=== PATIENT | female | born 1990 | race American Indian/Alaskan Native ===

== ENCOUNTER 2020-09-18 11:25 | Emergency (ER) | payer MEDICAID ==
[2020-09-18 12:14] VITALS: BP 146/99
[2020-09-18] MEDS ORDERED: ONDANSETRON 4 MG ODT TAB PO ONE (12:29)
--- NOTE | 2020-09-18 12:35 | Event Note ---
ED Screening Note Date of service: 09/18/20 Time: 12:25 ED Screening Note: 29-year-old morbid obese -[place] female presents to the emergency room stating that she has nausea and vomiting since this morning. She reports she is currently on her menstrual cycle. This initial assessment/diagnostic orders/clinical plan/treatment(s) is/are subject to change based on patients health status, clinical progression and re- assessment by fellow clinical providers in the ED. Further treatment and workup at subsequent clinical providers discretion. Patient/guardian urged not to elope from the ED as their condition may be serious if not clinically assessed and managed. Initial orders include:
[2020-09-18 14:21] LABS: HCG Qualitative,Urine Negative (Negative)
[2020-09-18 14:29] LABS: Bilirubin,Urine NEG (Negative); Blood,Urine MOD (Negative); Color,Urine Yellow (Yellow); Mucus,Urine FEW /HPF; Urobilinogen,Urine < 2.0 mg/dL (<2.0)
== END 2020-09-18 17:59 | disposition left against medical advice (07) ==
LOC: ED 11:25
DX: R07.89 Other chest pain (principal); R11.2 Nausea with vomiting, unspecified; R51.9 Headache, unspecified; Z53.21 Procedure and treatment not carried out due to patient leaving prior to being seen by health care provider
CPT/HCPCS: 81001; 81025; Q0162

== ENCOUNTER 2020-09-20 16:59 | Emergency (ER) | payer MEDICAID ==
[2020-09-20] MEDS ORDERED: SODIUM CHLORIDE 0.9% 1000 ML 1,000 ML IV ONE (17:54)
[2020-09-20] MEDS ORDERED: DICYCLOMINE 20 MG/2 ML INJ IM ONE (17:54)
[2020-09-20 18:12] LABS: Basophils # (Auto) 0.1 K/mm3 (0.0-0.1); Basophils % (Auto) 1.1 % (0.0-1.8); Eosinophils # (Auto) 0.1 K/mm3 (0.0-0.4); Eosinophils % (Auto) 0.8 % (0.0-4.3); Hematocrit 33.9 % (30.3-42.9); Hemoglobin 11.3 gm/dl (10.1-14.3); Lymphocytes # (Auto) 2.5 K/mm3 (1.2-5.4); Lymphocytes % (Auto) 32.3 % (13.4-35.0); Mean Corpuscular HGB Conc 33 % (30-34); Mean Corpuscular Volume 86 fl (79-97); Monocytes # (Auto) 0.5 K/mm3 (0.0-0.8); Monocytes % (Auto) 6.9 % (0.0-7.3); Platelet Count 408 K/mm3 (140-440); Red Blood Count 3.96 M/mm3 (3.65-5.03); Red Cell Distribution Width 15.9 % (13.2-15.2)
[2020-09-20 18:35] LABS: Alanine Aminotransferase 10 units/L (7-56); Albumin 3.7 g/dL (3.9-5); Blood Urea Nitrogen 9 mg/dL (7-17); Calcium 8.8 mg/dL (8.4-10.2); Hemolysis Index 0
[2020-09-20] MEDS ORDERED: ALUM-MAG HYDROXIDE-SIMETHICONE 200-200-20MG/5ML ORAL LIQD 30 ML PO ONE (18:35)
[2020-09-20] MEDS ORDERED: ONDANSETRON 4 MG/2 ML INJ IV ONE (18:35)
[2020-09-20] MEDS ORDERED: HYOSCYAMINE SUBL 0.125 MG TAB SL ONE (18:35)
--- NOTE | 2020-09-20 18:35 | Emergency Department Report ---
ED Abdominal Pain HPI - General Chief Complaint: Abdominal Pain Stated Complaint: ABD PAIN Time Seen by Provider: 09/20/20 17:53 Source: patient Mode of arrival: Ambulatory Limitations: No Limitations - History of Present Illness Initial Comments: Patient is a 29-year-old female presents emergency room complaints of right- sided abdominal pain that began 2 days ago. She states initially she was having nausea and vomiting but the vomiting has since resolved. She states that she has been having diarrhea over the last 2 days. She denies any fever, he matochezia, melena, pus in the stool, urinary symptoms, abnormal vaginal discharge. She denies any sick contacts, recent travel, recent camping, water from a different source, recent antibiotics. She denies eating anything that may have been bad or spoiled. Past medical history of hypertension GERD. No allergies to medications. Last menstrual cycle last week. Past surgical history of umbilical hernia repair approximately 7 years ago. Patient states that she presented to the emergency department 2 days ago but had to leave and she had a UA at that time which was within normal limits and urine was negative. She states that the vomiting improved but she still continues to have pain. - Related Data Previous Rx's Medication Instructions Recorded Last Taken Type Hyoscyamine Subl [Levsin Sl 0.125 0.125 mg SL Q6HR PRN #7 tab 09/20/20 Unknown Rx TAB] Ondansetron [Zofran Odt] 4 mg PO Q8HR PRN #10 tab.rapdis 09/20/20 Unknown Rx Allergies Allergy/AdvReac Type Severity Reaction Status Date / Time No Known Allergies Allergy Unverified 09/18/20 12:08 ED Review of Systems ROS: Stated complaint: ABD PAIN Other details as noted in HPI Comment: All other systems reviewed and negative ED Past Medical Hx - Past Medical History Previous Medical History?: Yes Hx Hypertension: Yes - Surgical History Past Surgical History?: Yes Additional Surgical History: HERNIA. left knee - Social History Smoking Status: Never Smoker Substance Use Type: None - Medications Home Medications: Home Medications Medication Instructions Recorded Confirmed Last Taken Type Hyoscyamine Subl [Levsin Sl 0.125 0.125 mg SL Q6HR PRN #7 tab 09/20/20 Unknown Rx TAB] Ondansetron [Zofran Odt] 4 mg PO Q8HR PRN #10 tab.rapdis 09/20/20 Unknown Rx ED Physical Exam - General Limitations: No Limitations General appearance: alert, in no apparent distress - Head Head exam: Present: atraumatic, normocephalic - Eye Eye exam: Present: normal appearance - ENT ENT exam: Present: mucous membranes moist - Respiratory Respiratory exam: Present: normal lung sounds bilaterally. Absent: respiratory distress, wheezes, rales, rhonchi, stridor, chest wall tenderness, accessory muscle use, decreased breath sounds, prolonged expiratory - Cardiovascular Cardiovascular Exam: Present: regular rate, normal rhythm, normal heart sounds. Absent: systolic murmur, diastolic murmur, rubs, gallop - GI/Abdominal GI/Abdominal exam: Present: soft, tenderness (RUQ, RLQ), normal bowel sounds. Absent: distended, guarding, rebound, rigid - Neurological Exam Neurological exam: Present: alert, oriented X3 - Psychiatric Psychiatric exam: Present: normal affect, normal mood - Skin Skin exam: Present: warm, dry, intact ED Course Vital Signs 09/20/20 09/20/20 17:20 21:00 Temperature 98.4 F 98.7 F Pulse Rate 92 H 70 Respiratory 18 18 Rate Blood Pressure 137/85 Blood Pressure 134/77 [Right] O2 Sat by Pulse 100 98 Oximetry ED Medical Decision Making - Lab Data Result diagrams: 09/20/20 18:02 09/20/20 18:02 Lab Results 09/20/20 09/20/20 09/20/20 Range/Units 18:02 18:02 18:02 WBC 7.6 (4.5-11.0) K/mm3 RBC 3.96 (3.65-5.03) M/mm3 Hgb 11.3 (10.1-14.3) gm/dl Hct 33.9 (30.3-42.9) % MCV 86 (79-97) fl MCH 29 (28-32) pg MCHC 33 (30-34) % RDW 15.9 H (13.2-15.2) % Plt Count 408 (140-440) K/mm3 Lymph % (Auto) 32.3 (13.4-35.0) % Calhoun % (Auto) 6.9 (0.0-7.3) % Eos % (Auto) 0.8 (0.0-4.3) % Baso % (Auto) 1.1 (0.0-1.8) % Lymph # (Auto) 2.5 (1.2-5.4) K/mm3 Calhoun # (Auto) 0.5 (0.0-0.8) K/mm3 Eos # (Auto) 0.1 (0.0-0.4) K/mm3 Baso # (Auto) 0.1 (0.0-0.1) K/mm3 Seg Neutrophils % 58.9 (40.0-70.0) % Seg Neutrophils # 4.5 (1.8-7.7) K/mm3 Sodium 140 (137-145) mmol/L Potassium 3.8 (3.6-5.0) mmol/L Chloride 105.9 (98-107) mmol/L Carbon Dioxide 27 (22-30) mmol/L Anion Gap 11 mmol/L BUN 9 (7-17) mg/dL Creatinine 0.7 (0.6-1.2) mg/dL Estimated GFR > 60 ml/min BUN/Creatinine Ratio 13 % Glucose 101 H (65-100) mg/dL Calcium 8.8 (8.4-10.2) mg/dL Total Bilirubin 0.20 (0.1-1.2) mg/dL AST 16 (5-40) units/L ALT 10 (7-56) units/L Alkaline Phosphatase 62 (35-129) units/L Total Protein 7.1 (6.3-8.2) g/dL Albumin 3.7 L (3.9-5) g/dL Albumin/Globulin Ratio 1.1 % Lipase 30 (13-60) units/L HCG, Qual Negative (Negative) - Radiology Data Radiology results: report reviewed CT OF THE ABDOMEN AND PELVIS WITH INTRAVENOUS CONTRAST INDICATION / CLINICAL INFORMATION: Right-sided abdominal pain with nausea, vomiting and diarrhea. TECHNIQUE: The patient received 100 cc Omnipaque [address] scans at this location are performed using CT dose reduction for ALARA by means of automated exposure control. COMPARISON: None available. FINDINGS: ABDOMEN: The liver, spleen, bile ducts, pancreas, adrenal glands, kidneys and bowel demonstrate no significant abnormality. The gallbladder is contracted without visible gallstones. No adenopathy is seen. The lung bases are clear. PELVIS: The distal ureters and urinary bladder are normal. The uterus and ovaries are normal. No abnormal mass or fluid collection is seen. A normal appendix is present and there is no evidence of diverticulitis. I do not identify a hernia. No acute osseous abnormality is seen. IMPRESSION: No acute abnormality is identified. Signer Name: Victor Hugo Freitas MD Signed: 09/20/2020 8:31 PM Workstation Name: [id number] Transcribed By: RT Dictated By: Victor Hugo Freitas MD Electronically Authenticated By: Victor Hugo Freitas MD Signed Date/Time: 09/20/202030 DD/ 28 TD/TT: Print Cancel - Medical Decision Making Patient is a 29-year-old female presents emergency room complaints of right- sided abdominal pain that began 2 days ago. She states initially she was having nausea and vomiting but the vomiting has since resolved. She states that she has been having diarrhea over the last 2 days. She denies any fever, hematochezia, melena, pus in the stool, urinary symptoms, abnormal vaginal di scharge. She denies any sick contacts, recent travel, recent camping, water from a different source, recent antibiotics. She denies eating anything that may have been bad or spoiled. Past medical history of hypertension GERD. No allergies to medications. Last menstrual cycle last week. Past surgical history of umbilical hernia repair approximately 7 years ago. Patient states that she presented to the emergency department 2 days ago but had to leave and she had a UA at that time which was within normal limits and urine was negative. She states that the vomiting improved but she still continues to have pain. Vitals are stable. On exam: Right upper quadrant and right lower q uadrant tenderness palpation, no guarding, no rebound, no rigidity, normal bowel sounds, no peritoneal signs. Labs are normal, hCG is negative. Patient had recent UA which within normal limits. CT abdomen pelvis with IV contrast IMPRESSION: No acute abnormality is identified. Patient given medications while in the emergency department and symptoms improved, she was able to tolerate p.o. intake without difficulty. She had no further episodes of vomiting or diarrhea while in the emergency department. Patient given prescription for Levsin and Zofran. Advised patient Please take medication as prescribed. Increase your water intake. Eat a bland liquid diet and slowly advance your diet as tolerated. Follow-up with a primary care doctor. Return to emergency room for any new or worsening symptoms. - Differential Diagnosis Gastroenteritis, colitis, appendicitis, cholecystitis, cholelithiasis,viral Critical care attestation.: If time is entered above; I have spent that time in minutes in the direct care of this critically ill patient, excluding procedure time. ED Disposition Clinical Impression: Nausea vomiting and diarrhea Abdominal pain Qualifiers: Abdominal location: unspecified location Qualified Code(s): R10.9 - Unspecified abdominal pain Disposition: TO HOME OR SELFCARE Is pt being admited?: No Does the pt Need Aspirin: No Condition: Stable Instructions: Viral Gastroenteritis, Adult, Abdominal Pain (ED) Additional Instructions: Please take medication as prescribed. Increase your water intake. Eat a bland liquid diet and slowly advance your diet as tolerated. Follow-up with a primary care doctor. Return to emergency room for any new or worsening symptoms. Prescriptions: Hyoscyamine Subl [Levsin Sl 0.125 TAB] 0.125 mg SL Q6HR PRN #7 tab PRN Reason: abdominal cramping/diarrhea Ondansetron [Zofran Odt] 4 mg PO Q8HR PRN #10 tab.rapdis PRN Reason: nausea/vomiting Referrals: PRIMARY CAREMD [Primary Care Provider] - 2-3 Days CARLOS ROCHA MD [Staff Physician] - 2-3 Days [facility] [Provider Group] - 2-3 Days Time of Disposition: 20:38 Print Language: ALGERIAN
[2020-09-20 18:38] LABS: BUN/Creatinine Ratio 13
--- NOTE | 2020-09-20 20:36 | Cat Scan Report ---
CT OF THE ABDOMEN AND PELVIS WITH INTRAVENOUS CONTRAST INDICATION / CLINICAL INFORMATION: Right-sided abdominal pain with nausea, vomiting and diarrhea. TECHNIQUE: The patient received 100 cc Omnipaque [address] scans at this location are performed using CT dose reduction for ALARA by means of automated exposure control. COMPARISON: None available. FINDINGS: ABDOMEN: The liver, spleen, bile ducts, pancreas, adrenal glands, kidneys and bowel demonstrate no si gnificant abnormality. The gallbladder is contracted without visible gallstones. No adenopathy is see n. The lung bases are clear. PELVIS: The distal ureters and urinary bladder are normal. The uterus and ovaries are normal. No abno rmal mass or fluid collection is seen. A normal appendix is present and there is no evidence of diver ticulitis. I do not identify a hernia. No acute osseous abnormality is seen. IMPRESSION: No acute abnormality is identified. Signer Name: Victor Hugo Freitas MD Signed: 09/20/2020 8:31 PM Workstation Name: [id number]
[2020-09-20 21:12] VITALS: BP 134/77
== END 2020-09-20 21:00 | disposition home or self-care (01) ==
LOC: ED 16:59
DX: R11.2 Nausea with vomiting, unspecified (principal); R19.7 Diarrhea, unspecified; R10.9 Unspecified abdominal pain; I10 Essential (primary) hypertension; Z79.899 Other long term (current) drug therapy; Z98.890 Other specified postprocedural states
CPT/HCPCS: 36415; 74177; 80053; 83690; 84703; 85025; 96361; 96374; 99284; J2405; J7030; Q9967

== ENCOUNTER → 2020-11-15 | Outpatient (CLI) | payer MEDICAID | END | disposition home or self-care (01) | LOC: SLR 11:00 | PROVIDERS: ATTEND Otolaryngology | DX: G47.30 Sleep apnea, unspecified (principal) | CPT/HCPCS: G0399 ==

== ENCOUNTER 2020-12-01 11:00 | Outpatient (CLI) | payer MEDICAID | END 2020-12-01 11:01 | disposition home or self-care (01) | LOC: SLR 11:00 | PROVIDERS: ATTEND Otolaryngology | DX: G47.33 Obstructive sleep apnea (adult) (pediatric) (principal) | CPT/HCPCS: 95811 ==

== ENCOUNTER 2020-12-08 20:15 | Emergency (ER) | payer MEDICAID ==
--- NOTE | 2020-12-08 22:59 | Event Note ---
ED Screening Note Date of service: 12/08/20 Time: 22:56 ED Screening Note: Patient is a 30 yo AA female with a h/o HTN, Anemia and morbid obesity who presents to the ED with c/o acute onset persistent lightheadedness, near syncope, headache and left-sided chest pain that radiates to the left arm with tingling sensations for the last 2 hours. Patient states that she took 2 tablets of Asprin 81 mg prior to arrival. Patient denies vision changes, diaphoresis, syncope, seizures, fever, chills, or cough, abdominal pain, nausea and vomiting. This initial assessment/diagnostic orders/clinical plan/treatment(s) is/are subject to change based on patients health status, clinical progression and re- assessment by fellow clinical providers in the ED. Further treatment and workup at subsequent clinical providers discretion. Patient/guardian urged not to elope from the ED as their condition may be serious if not clinically assessed and managed. Initial orders include: cbc, cmp, troponin, chest x-ray, d-dimer, ekg
[2020-12-08 23:17] LABS: Basophils # (Auto) 0.1 K/mm3 (0.0-0.1); Basophils % (Auto) 1.2 % (0.0-1.8); Eosinophils # (Auto) 0.1 K/mm3 (0.0-0.4); Eosinophils % (Auto) 1.5 % (0.0-4.3); Hematocrit 33.6 % (30.3-42.9); Hemoglobin 11.4 gm/dl (10.1-14.3); Lymphocytes # (Auto) 3.2 K/mm3 (1.2-5.4); Lymphocytes % (Auto) 41.3 % (13.4-35.0); Mean Corpuscular HGB Conc 34 % (30-34); Mean Corpuscular Volume 85 fl (79-97); Monocytes # (Auto) 0.4 K/mm3 (0.0-0.8); Monocytes % (Auto) 5.7 % (0.0-7.3); Platelet Count 400 K/mm3 (140-440); Red Blood Count 3.95 M/mm3 (3.65-5.03); Red Cell Distribution Width 15.5 % (13.2-15.2)
[2020-12-08 23:46] LABS: Alanine Aminotransferase 11 units/L (7-56); Albumin 4.2 g/dL (3.9-5); Blood Urea Nitrogen 10 mg/dL (7-17); Calcium 9.3 mg/dL (8.4-10.2); Hemolysis Index 6
[2020-12-08 23:47] LABS: BUN/Creatinine Ratio 14
--- NOTE | 2020-12-08 23:58 | XRay Report ---
CHEST 1 VIEW 2331 INDICATION / CLINICAL INFORMATION: CHEST PAIN, DYSPNEA COMPARISON: None available. FINDINGS: SUPPORT DEVICES: None HEART / MEDIASTINUM: No significant abnormality. LUNGS / PLEURA: Poor degree of inspiration is seen. No obvious acute abnormalities are noted. No pneu mothorax. ADDITIONAL FINDINGS: No significant additional findings. IMPRESSION: No significant acute abnormality Signer Name: Jhonathan Will MD Signed: 12/08/2020 11:54 PM Workstation Name: [id number]
[2020-12-09 05:34] VITALS: BP 122/70
[2020-12-09] MEDS ORDERED: BUTALB/ACETAMINOPHEN/CAFFEINE TAB PO ONE (06:16)
--- NOTE | 2020-12-09 06:20 | Emergency Department Report ---
HPI - General Chief Complaint: Dizziness Time Seen by Provider: 12/09/20 06:05 - HPI HPI: Room 1 The patient is a 30-year-old female present with a chief complaint of headache dizziness and chest pain. The patient states last night she developed this s ubsternal chest pain dizziness and headache. Patient admits to increased work of breathing. The patient states she took some aspirin when she arrived to the ED the symptoms slowly began to subside. Patient now only complains of a headache and gives her pain a score of 3/10. Patient denies any preceding trauma, fever or nausea/vomiting. The patient was dropped off by the emergency department by her significant other ED Past Medical Hx - Past Medical History Hx Hypertension: Yes Hx GERD: Yes Additional medical history: Thrombocytosis, obstructive sleep apnea, vitamin D deficiency, GERD - Surgical History Additional Surgical History: HERNIA. left knee - Family History Family history: no significant, other (No family history of premature heart disease) - Social History Smoking Status: Never Smoker Substance Use Type: None (Denies illicit drug use), Alcohol (Occasional) - Medications Home Medications: Home Medications Medication Instructions Recorded Confirmed Last Taken Type Hyoscyamine Subl [Levsin Sl 0.125 0.125 mg SL Q6HR PRN #7 tab 09/20/20 Unknown Rx TAB] Ondansetron [Zofran Odt] 4 mg PO Q8HR PRN #10 tab.rapdis 09/20/20 Unknown Rx Butalb/Acetamin/Caff 50-325-40 2 tab PO Q8HR PRN #14 tablet 12/09/20 Unknown Rx [Fioricet 50-325-40] Famotidine [Pepcid] 20 mg PO BID #20 tablet 12/09/20 Unknown Rx ED Review of Systems ROS: Stated complaint: FEELING FAINT/LIGHT HEADED Other details as noted in HPI Constitutional: denies: fever Eyes: denies: eye pain ENT: denies: throat pain Respiratory: other (Increased work of breathing) Cardiovascular: chest pain Endocrine: no symptoms reported Gastrointestinal: denies: abdominal pain, nausea, vomiting Genitourinary: denies: dysuria Musculoskeletal: denies: back pain Neurological: headache Physical Exam - Physical Exam Vital Signs: Vital Signs 12/08/20 12/09/20 20:30 05:34 Temperature 98.6 F 98.2 F Pulse Rate 86 68 Respiratory 18 16 Rate Blood Pressure 128/75 Blood Pressure 122/70 [Left] O2 Sat by Pulse 97 96 Oximetry Physical Exam: GENERAL: The patient is well-developed well-nourished female lying on stretcher not appearing to be in acute distress. [] HEENT: Normocephalic. Atraumatic. Extraocular motions are intact. No nystagmus patient has moist mucous membranes. NECK: Supple. No meningitic signs are noted. Trachea midline CHEST/LUNGS: Clear to auscultation. There is no respiratory distress noted. HEART/CARDIOVASCULAR: Regular. There is no tachycardia. There is no gallop rub or murmur. ABDOMEN: Abdomen is soft, nontender. Patient has normal bowel sounds. There is no abdominal distention. SKIN: There is no rash. There is no edema. There is no diaphoresis. NEURO: The patient is awake, alert, and oriented. The patient is cooperative. The patient has no focal neurologic deficits. The patient has normal speech. Cranial nerves II through XII grossly intact, no drift. No dysmetria noted with [id number] bilaterally. No nystagmus. GCS 15 MUSCULOSKELETAL: There is no evidence of acute injury. ED Course Vital Signs 12/08/20 12/09/20 20:30 05:34 Temperature 98.6 F 98.2 F Pulse Rate 86 68 Respiratory 18 16 Rate Blood Pressure 128/75 Blood Pressure 122/70 [Left] O2 Sat by Pulse 97 96 Oximetry ED Medical Decision Making - Lab Data Result diagrams: 12/08/20 22:59 12/08/20 22:59 Laboratory Tests 12/08/20 12/08/20 12/08/20 22:59 22:59 22:59 WBC 7.8 RBC 3.95 Hgb 11.4 Hct 33.6 MCV 85 MCH 29 MCHC 34 RDW 15.5 H Plt Count 400 Lymph % (Auto) 41.3 H Morrison % (Auto) 5.7 Eos % (Auto) 1.5 Baso % (Auto) 1.2 Lymph # (Auto) 3.2 Morrison # (Auto) 0.4 Eos # (Auto) 0.1 Baso # (Auto) 0.1 Seg Neutrophils % 50.3 Seg Neutrophils # 3.9 D-Dimer 138.79 Sodium 136 L Potassium 4.1 Chloride 100.9 Carbon Dioxide 24 Anion Gap 15 BUN 10 Creatinine 0.7 Estimated GFR > 60 BUN/Creatinine Ratio 14 Glucose 95 Calcium 9.3 Total Bilirubin 0.20 AST 19 ALT 11 Alkaline Phosphatase 65 Troponin T < 0.010 Total Protein 7.3 Albumin 4.2 Albumin/Globulin Ratio 1.4 HCG, Qual 12/09/20 12/09/20 12/09/20 01:35 06:57 06:57 WBC RBC Hgb Hct MCV MCH MCHC RDW Plt Count Lymph % (Auto) Morrison % (Auto) Eos % (Auto) Baso % (Auto) Lymph # (Auto) Morrison # (Auto) Eos # (Auto) Baso # (Auto) Seg Neutrophils % Seg Neutrophils # D-Dimer Sodium Potassium Chloride Carbon Dioxide Anion Gap BUN Creatinine Estimated GFR BUN/Creatinine Ratio Glucose Calcium Total Bilirubin AST ALT Alkaline Phosphatase Troponin T < 0.010 < 0.010 Total Protein Albumin Albumin/Globulin Ratio HCG, Qual Negative - EKG Data -: EKG Interpreted by Me EKG shows normal: sinus rhythm Rate: normal - EKG Data When compared to previous EKG there are: previous EKG unavailable Interpretation: nonspecific ST-T wave saulo (Flattened T waves infero-laterally) - Radiology Data Radiology results: report reviewed (Chest x-ray, CT head), image reviewed (Chest x-ray, CT head) interpreted by me: Chest x-ray-no focal infiltrates, no pneumothorax. No foreign body seen [address] [address] XRay Report Signed Patient: INÉS SUAREZ MR#: [id number] : 1990 Acct:[id number] Age/Sex: 30 / F ADM Date: 12/08/20 Loc: ED Attending Dr: Order ing Physician: MARÍA MCKEON Date of Service: 12/08/20 Procedure(s): XR chest 1V ap Accession Number(s): [id number] cc: MARÍA MCKEON Fluoro Time In Minutes: CHEST 1 VIEW 2331 INDICATION / CLINICAL INFORMATION: CHEST PAIN, DYSPNEA COMPARISON: None available. FINDINGS: SUPPORT DEVICES: None HEART / MEDIASTINUM: No significant abnormality. LUNGS / PLEURA: Poor degree of inspiration is seen. No obvious acute abnormalities are noted. No pneumothorax. ADDITIONAL FINDINGS: No significant additional findings. IMPRESSION: No significant acute abnormality Signer Name: Jhonathan Will MD Signed: 12/08/2020 11:54 PM Workstation Name: [id number] Transcribed By: MARIAMA Dictated By: Jhonathan Will MD Electronically Authenticated By: Jhonathan Will MD Signed Date/Time: 12/08/202353 DD/ 53 TD/TT: Print [facility] [address] [place] [address] Cat Scan Report Signed Patient: INÉS SUAREZ MR#: [id number] : 1990 Acct:[id number] Age/Sex: 30 / F ADM Date: 12/08/20 Loc: ED Attending Dr: Ordering Physician: MARY JO OCONNOR MD Date of Service: 12/09/20 Procedure(s): CT head/brain wo con Accession Number(s): [id number] cc: MARY JO OCONNOR MD CT HEAD WITHOUT CONTRAST INDICATION: Frontal headache TECHNIQUE: All CT scans at this location are performed using CT dose reduction for ALARA by means of automated exposure control. COMPARISON: None available. FINDINGS: BRAIN: No hemorrhage or mass effect are seen. No evidence of acute infarction is noted. ORBITS: Normal as visualized. SOFT TISSUES OF HEAD: Normal. CALVARIUM: Normal. VISUALIZED PARANASAL SINUSES AND MASTOID AIR CELLS: Clear. ADDITIONAL FINDINGS: None. IMPRESSION: No acute intracranial abnormality. Signer Name: Jhonathan Will MD Signed: 12/09/2020 6:59 AM Workstation Name: [id number] Transcribed By: MARIAMA Dictated By: Jhonathan Will MD Electronically Authenticated By: Jhonathan Will MD Signed Date/Time: 12/09/2059 DD/ TD/TT: Print Cancel - Medical Decision Making Chest pain referral form faxed to [facility] ([phone]) - Differential Diagnosis Headache, intracranial mass, ACS, PE, pericarditis, GERD, anxiety Critical care attestation.: If time is entered above; I have spent that time in minutes in the direct care of this critically ill patient, excluding procedure time. ED Disposition Clinical Impression: Headache, Atypical chest pain Disposition: DC-01 TO HOME OR SELFCARE Is pt being admited?: No Does the pt Need Aspirin: No Condition: Stable Instructions: General Headache Without Cause, Nonspecific Chest Pain, Adult Additional Instructions: Return to the emergency department should you develop worsening symptoms, inability to tolerate food or liquids, high fever or any other concerns Prescriptions: Butalb/Acetamin/Caff 50-325-40 [Fioricet 50-325-40] 2 tab PO Q8HR PRN #14 tablet PRN Reason: Headache Famotidine [Pepcid] 20 mg PO BID #20 tablet Referrals: [facility] MD ANTONIO [Primary Care Provider] - 3-5 Days FAISAL HERNANDEZ MD [Staff Physician] - 3-5 Days Time of Disposition: 07:38 Heart Score - HEART Score History: Slightly suspicious EKG: Non-specific Age: < 45 Risk factors: 1-2 risk factors Troponin: < normal limit HEART Score: 2 - EKG Read Time Time EKG Completed: 23:19 EKG Read Time: 00:28
--- NOTE | 2020-12-09 07:03 | Cat Scan Report ---
CT HEAD WITHOUT CONTRAST INDICATION: Frontal headache TECHNIQUE: All CT scans at this location are performed using CT dose reduction for ALARA by means of automated exposure control. COMPARISON: None available. FINDINGS: BRAIN: No hemorrhage or mass effect are seen. No evidence of acute infarction is noted. ORBITS: Normal as visualized. SOFT TISSUES OF HEAD: Normal. CALVARIUM: Normal. VISUALIZED PARANASAL SINUSES AND MASTOID AIR CELLS: Clear. ADDITIONAL FINDINGS: None. IMPRESSION: No acute intracranial abnormality. Signer Name: Jhonathan Will MD Signed: 12/09/2020 6:59 AM Workstation Name: [id number]
--- NOTE | 2020-12-12 10:06 | Electrocardiograph Report ---
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
== END 2020-12-09 08:01 | disposition home or self-care (01) ==
LOC: ED 20:15
DX: R07.89 Other chest pain (principal); R51.9 Headache, unspecified; R42 Dizziness and giddiness; I10 Essential (primary) hypertension; K21.9 Gastro-esophageal reflux disease without esophagitis; Z98.890 Other specified postprocedural states; Z79.899 Other long term (current) drug therapy
CPT/HCPCS: 36415; 70450; 71045; 80053; 84484; 84703; 85025; 85379; 93005

== ENCOUNTER 2021-04-25 12:46 | Emergency (ER) | payer MEDICAID ==
[2021-04-25 12:53] VITALS: BP 156/84
--- NOTE | 2021-04-25 13:46 | Emergency Department Report ---
ED Chest Pain HPI - General Chief Complaint: Chest Pain Stated Complaint: chest pain PUI?: No Time Seen by Provider: 04/25/21 12:56 Source: patient Mode of arrival: Ambulatory Limitations: No Limitations - History of Present Illness Initial Comments: 30-year-old female with a past medical history of hypertension , GERD , iron def iciency and thrombocytopenia presents to the ER today with complaints of chest pain. Patient states that she has been having left-sided chest pain, mainly underneath her left breast and into her left back intermittently for about 1 month. She describes as a sharp achy pain. She states that she feels like the pain is becoming more intense. She also reports that she feels like her heart is beating "hard" at times. She is unable to describe any modifying factors. She denies any associated nausea, vomiting, shortness of breath, URI symptoms or cough, lower extremity swelling or calf pain. She denies any history of PE or DVT and currently denies any risk factors for PE or DVT. She denies any history of heart disease nor any family history of heart disease. She denies any illicit drug use or alcohol abuse. MD Complaint: chest pain -: month(s) (1) - Related Data Previous Rx's Medication Instructions Recorded Last Taken Type Hyoscyamine Subl [Levsin Sl 0.125 0.125 mg SL Q6HR PRN #7 tab 09/20/20 Unknown Rx TAB] Ondansetron [Zofran Odt] 4 mg PO Q8HR PRN #10 tab.rapdis 09/20/20 Unknown Rx Butalb/Acetamin/Caff 50-325-40 2 tab PO Q8HR PRN #14 tablet 12/09/20 Unknown Rx [Fioricet 50-325-40] Famotidine [Pepcid] 20 mg PO BID #20 tablet 12/09/20 Unknown Rx Allergies Allergy/AdvReac Type Severity Reaction Status Date / Time No Known Allergies Allergy Unverified 09/18/20 12:08 Heart Score - HEART Score History: Slightly suspicious EKG: Normal Age: < 45 Risk factors: 1-2 risk factors Troponin: < normal limit HEART Score: 1 - EKG Read Time Time EKG Completed: 15:42 EKG Read Time: 15:45 - Critical Actions Critical Actions: 0-3 pts:0.9-1.7%risk of adverse cardiac event.Candidate for discharge ED Review of Systems ROS: Stated complaint: chest pain Other details as noted in HPI Comment: All other systems reviewed and negative Constitutional: denies: chills, fever Eyes: denies: eye pain, eye discharge, vision change ENT: denies: ear pain, throat pain, dental pain, hearing loss, epistaxis, fan estion Respiratory: denies: cough, shortness of breath, SOB with exertion, SOB at rest, wheezing Cardiovascular: chest pain. denies: palpitations, dyspnea on exertion, orthopnea, edema, syncope, paroxysmal nocturnal dyspnea Gastrointestinal: denies: abdominal pain, nausea, vomiting, diarrhea, constipation, hematemesis, melena, hematochezia Genitourinary: denies: urgency, dysuria, frequency, hematuria, discharge, abnormal menses, dyspareunia Musculoskeletal: denies: back pain Skin: denies: rash, lesions, change in color, change in hair/nails, pruritus Neurological: denies: headache, weakness, paresthesias, abnormal gait, vertigo Psychiatric: denies: anxiety, depression, auditory hallucinations, visual hallucinations, homicidal thoughts, suicidal thoughts Hematological/Lymphatic: denies: easy bleeding, easy bruising, swollen glands ED Past Medical Hx - Past Medical History Previous Medical History?: Yes Hx Hypertension: Yes Hx GERD: Yes Additional medical history: Thrombocytosis, obstructive sleep apnea, vitamin D deficiency, GERD - Surgical History Past Surgical History?: Yes Additional Surgical History: HERNIA. left knee - Social History Smoking Status: Never Smoker Substance Use Type: None (Denies illicit drug use), Alcohol (Occasional) - Medications Home Medications: Home Medications Medication Instructions Recorded Confirmed Last Taken Type Hyoscyamine Subl [Levsin Sl 0.125 0.125 mg SL Q6HR PRN #7 tab 09/20/20 Unknown Rx TAB] Ondansetron [Zofran Odt] 4 mg PO Q8HR PRN #10 tab.rapdis 09/20/20 Unknown Rx Butalb/Acetamin/Caff 50-325-40 2 tab PO Q8HR PRN #14 tablet 12/09/20 Unknown Rx [Fioricet 50-325-40] Famotidine [Pepcid] 20 mg PO BID #20 tablet 12/09/20 Unknown Rx ED Physical Exam - General Limitations: No Limitations General appearance: alert, in no apparent distress - Head Head exam: Present: atraumatic, normocephalic, normal inspection - Eye Eye exam: Present: normal appearance, PERRL, EOMI Pupils: Present: normal accommodation - Neck Neck exam: Present: normal inspection, full ROM - Respiratory Respiratory exam: Present: normal lung sounds bilaterally. Absent: respiratory distress, wheezes, rales, rhonchi, chest wall tenderness - Cardiovascular Cardiovascular Exam: Present: regular rate, normal rhythm, normal heart sounds - GI/Abdominal GI/Abdominal exam: Present: soft. Absent: distended, tenderness, guarding, rebound - Extremities Exam Extremities exam: Present: normal inspection, full ROM. Absent: tenderness, pedal edema, calf tenderness - Neurological Exam Neurological exam: Present: alert, oriented X3, CN II-XII intact, normal gait - Psychiatric Psychiatric exam: Present: normal affect, normal mood - Skin Skin exam: Present: intact ED Course Vital Signs 04/25/21 12:51 Temperature 98 F Pulse Rate 85 Respiratory 16 Rate Blood Pressure 156/84 [Left] O2 Sat by Pulse 96 Oximetry ED Medical Decision Making - Lab Data Result diagrams: 04/25/21 14:03 04/25/21 14:03 - EKG Data -: EKG Interpreted by Or EKG shows normal: sinus rhythm Rate: normal (71) - EKG Data Interpretation: normal EKG - Radiology Data Radiology results: report reviewed Patient: INÉS SUAREZ MR#: [id number] : 1990 Acct:[id number] Age/Sex: 30 / F ADM Date: 04/25/21 Loc: ED Attending Dr: Ordering Physician: JOSIAH BALL Date of Service: 04/25/21 Procedure(s): XR chest routine 2V Accession Number(s): [id number] cc: JOSIAH BALL Fluoro Time In Minutes: CHEST 2 VIEWS INDICATION / CLINICAL INFORMATION: Chest Pain. COMPARISON: 12/08/2020 FINDINGS: SUPPORT DEVICES: None. HEART / MEDIASTINUM: No significant abnormality. LUNGS / PLEURA: No significant pulmonary or pleural abnormality. No pneumothorax. ADDITIONAL FINDINGS: No significant additional findings. IMPRESSION: 1. No acute findings. Signer Name: Gonzalo Hinson MD Signed: 04/25/2021 2:23 PM Workstation Name: [email or web address] Transcribed By: SB Dictated By: GONZALO HINSON MD Electronically Authenticated By: GONZALO HINSON MD Signed Date/Time: 04/25/211422 DD/ 21 TD/TT: - Medical Decision Making 30-year-old female with a past medical history of hypertension , GERD , iron deficiency and thrombocytopenia presents to the ER today with complaints of chest pain. Patient states that she has been having left-sided chest pain, mainly underneath her left breast and into her left back intermittently for about 1 month. She describes as a sharp achy pain. She states that she feels like the pain is becoming more intense. She also reports that she feels like her heart is beating "hard" at times. She is unable to describe any modifying factors. She denies any associated nausea, vomiting, shortness of breath, URI symptoms or cough, lower extremity swelling or calf pain. She denies any history of PE or DVT and currently denies any risk factors for PE or DVT. She denies any history of heart disease nor any family history of heart disease. She denies any illicit drug use or alcohol abuse. EKG shows normal sinus rhythm with a heart rate of 71, no acute ischemic changes or STEMI or significant dysrhythmias. Troponin is negative. CBC and CMP unremarkable. Chest x-ray shows nothing acute. Patient has a heart score of 1. PERC score is 0. There is no concern for unstable angina, PE, aortic dissection, or any other acute cardiopulmonary issues requiring any additional testing, admission or specialist consult at this time. Discussed lab results, EKG results and x-ray results with patient. Her information will be faxed over to the [facility] so they can contact her for cardiology follow-up. Patient expressed understanding for instructions and agree with plan. Patient stable at time of discharge. Critical care attestation.: If time is entered above; I have spent that time in minutes in the direct care of this critically ill patient, excluding procedure time. ED Disposition Clinical Impression: Nonspecific chest pain Disposition: HOME / SELF CARE / HOMELESS Is pt being admited?: No Does the pt Need Aspirin: No Condition: Stable Instructions: Nonspecific Chest Pain, Adult, [id number] Additional Instructions: Your information was faxed over to the [facility], and you should be contacted by them for follow-up with a director of retail and further cardiac work-up. You can take a baby aspirin every day. You can also take Tylenol as needed for pain and continue taking your regular blood pressure medication as prescribed. Return to the ER if your symptoms changes or worsens in any way. Referrals: [facility] [Provider Group] - 3-5 Days Forms: Work/School Release Form(ED) Time of Disposition: 15:57 Print Language: E[employer]ATOR[employer] GUINEAN
--- NOTE | 2021-04-25 14:27 | XRay Report ---
CHEST 2 VIEWS INDICATION / CLINICAL INFORMATION: Chest Pain. COMPARISON: 12/08/2020 FINDINGS: SUPPORT DEVICES: None. HEART / MEDIASTINUM: No significant abnormality. LUNGS / PLEURA: No significant pulmonary or pleural abnormality. No pneumothorax. ADDITIONAL FINDINGS: No significant additional findings. IMPRESSION: 1. No acute findings. Signer Name: Gonzalo Silva MD Signed: 04/25/2021 2:23 PM Workstation Name: [employer]
[2021-04-25 14:32] LABS: Basophils % (Auto) 0.7 % (0.0-1.8); Eosinophils # (Auto) 0.1 K/mm3 (0.0-0.4); Eosinophils % (Auto) 1.1 % (0.0-4.3); Hematocrit 38.9 % (30.3-42.9); Hemoglobin 12.7 gm/dl (10.1-14.3); Mean Corpuscular HGB Conc 33 % (30-34); Mean Corpuscular Volume 89 fl (79-97); Monocytes # (Auto) 0.4 K/mm3 (0.0-0.8); Monocytes % (Auto) 6.3 % (0.0-7.3); Platelet Count 400 K/mm3 (140-440); Red Blood Count 4.38 M/mm3 (3.65-5.03); Red Cell Distribution Width 15.6 % (13.2-15.2)
[2021-04-25 14:47] LABS: Alanine Aminotransferase 11 units/L (7-56); Albumin 3.8 g/dL (3.9-5); BUN/Creatinine Ratio 16; Blood Urea Nitrogen 13 mg/dL (7-17); Calcium 9.6 mg/dL (8.4-10.2); Hemolysis Index 3
--- NOTE | 2021-04-26 10:36 | Electrocardiograph Report ---
[facility] Test Date: 2021-04-25 Test Time: 15:42:12 Pat Name: INÉS SUAREZ Department: Room: Gender: F Platform Loader: DARIUS : 1990 Requested By: JOSIAH BALL Order Number: [id number] Reading MD: Nando Treviño Measurements Intervals [place] Rate: 71 P: 30 MN: 162 QRS: 27 QRSD: 81 T: 19 QT: 368 QTc: 402 Interpretive Statements Sinus rhythm Compared to ECG 12/08/2020 23:19:42 No significant changes Electronically Signed On 04-26-2021 10:35:36 EDT by Nando Treviño
== END 2021-04-25 16:10 | disposition home or self-care (01) ==
LOC: ED 12:46
DX: R07.9 Chest pain, unspecified (principal); I10 Essential (primary) hypertension; F10.20 Alcohol dependence, uncomplicated
CPT/HCPCS: 36415; 71046; 80053; 84484; 85025; 93005; 99283

== ENCOUNTER 2021-05-22 22:02 | Emergency (ER) | payer MEDICAID ==
[2021-05-22] MEDS ORDERED: FAMOTIDINE 20 MG TAB PO ONE (22:55)
[2021-05-22] MEDS ORDERED: ONDANSETRON 4 MG ODT TAB PO ONE (22:55)
[2021-05-22] MEDS ORDERED: ASPIRIN 81 MG TAB CHEW PO ONE (22:55)
--- NOTE | 2021-05-22 22:56 | XRay Report ---
CHEST PA AND LATERAL VIEWS INDICATION: Chest Pain. COMPARISON: 04/25/2021 FINDINGS: Support devices: None. Heart: Within normal limits. Lungs/Pleura: No acute pulmonary or pleural findings. IMPRESSION: 1. No acute findings. Signer Name: Johnny Guzman MD Signed: 05/22/2021 10:52 PM Workstation Name: [id number]
[2021-05-22 23:02] LABS: Basophils % (Auto) 0.7 % (0.0-1.8); Eosinophils # (Auto) 0.1 K/mm3 (0.0-0.4); Eosinophils % (Auto) 1.3 % (0.0-4.3); Hematocrit 36.5 % (30.3-42.9); Hemoglobin 11.9 gm/dl (10.1-14.3); Mean Corpuscular HGB Conc 33 % (30-34); Mean Corpuscular Volume 89 fl (79-97); Monocytes # (Auto) 0.4 K/mm3 (0.0-0.8); Monocytes % (Auto) 5.9 % (0.0-7.3); Platelet Count 390 K/mm3 (140-440); Red Blood Count 4.11 M/mm3 (3.65-5.03); Red Cell Distribution Width 13.6 % (13.2-15.2)
[2021-05-22 23:30] LABS: Alanine Aminotransferase 15 units/L (7-56); Albumin 3.8 g/dL (3.9-5); Blood Urea Nitrogen 14 mg/dL (7-17); Calcium 9.5 mg/dL (8.4-10.2); Hemolysis Index 30
[2021-05-22 23:35] LABS: BUN/Creatinine Ratio 20
[2021-05-23] MEDS ORDERED: ONDANSETRON 4 MG/2 ML INJ IV ONE (01:18)
[2021-05-23] MEDS ORDERED: MORPHINE 4 MG/1 ML INJ IV ONE (01:18)
--- NOTE | 2021-05-23 01:59 | Emergency Department Report ---
ED Chest Pain HPI - General Chief Complaint: Chest Pain Stated Complaint: CHEST PAINS Source: patient Mode of arrival: Ambulatory Limitations: No Limitations - History of Present Illness Initial Comments: Patient is a 30-year-old -Mongolian female with a history of morbid o besity, hypertension, GERD, vitamin D deficiency, and obstructive sleep apnea who presents to the ED with complaint of acute onset persistent epigastric pain, intermittent fever and chills and nausea and vomiting for the last 2 days. Patient also states that she has been having persistent dry cough with shortness of breath and developed acute onset left-sided chest pain at rest 3 hours prior to arrival in the ED. Patient states that no one else at home is had similar symptoms. Patient also states that she had a negative COVID-19 diagnosis test 24 hours ago. Patient denies dizziness, syncope, diarrhea, sore throat, nasal and sinus congestion, heavy lifting, dysuria, urinary frequency and urgency or hematemesis. MD Complaint: chest pain (left sided chest pain; dry cough), other (nausea and vomiting, epigastric pain;) -: Sudden, days(s) (2) Onset: during rest Pain Location: left chest Pain Radiation: none Severity: severe Severity scale (0 -10): 7 Quality: aching, sharp Consistency: constant Improves With: nothing Worsens With: other (Cough) re: nausea, vomting. denies: dyspnea, sense of impending doom Other Symptoms: cough, fever. denies: syncope, acid taste in mouth, leg swelling, palpitations, burping, other Treatments Prior to Arrival: none Aspirin use within the Past 7 Days: (0) No - Related Data On Oral Contraceptives: No Previous Rx's Medication Instructions Recorded Last Taken Type Hyoscyamine Subl [Levsin Sl 0.125 0.125 mg SL Q6HR PRN #7 tab 09/20/20 Unknown Rx TAB] Ondansetron [Zofran Odt] 4 mg PO Q8HR PRN #10 tab.rapdis 09/20/20 Unknown Rx Butalb/Acetamin/Caff 50-325-40 2 tab PO Q8HR PRN #14 tablet 12/09/20 Unknown Rx [Fioricet 50-325-40] Famotidine [Pepcid] 20 mg PO BID #20 tablet 12/09/20 Unknown Rx Famotidine [Pepcid] 20 mg PO Q12H #60 tablet 05/23/21 Unknown Rx Ibuprofen [Motrin] 800 mg PO Q8HR PRN #30 tablet 05/23/21 Unknown Rx Ondansetron [Zofran Odt] 4 mg PO Q6HR PRN #20 tab.rapdis 05/23/21 Unknown Rx Allergies Allergy/AdvReac Type Severity Reaction Status Date / Time No Known Allergies Allergy Unverified 09/18/20 12:08 Heart Score - HEART Score History: Slightly suspicious EKG: Normal Age: < 45 Risk factors: 1-2 risk factors Troponin: < normal limit HEART Score: 1 - EKG Read Time Time EKG Completed: 22:29 EKG Read Time: 22:30 - Critical Actions Critical Actions: 0-3 pts:0.9-1.7%risk of adverse cardiac event.Candidate for discharge ED Review of Systems ROS: Stated complaint: CHEST PAINS Other details as noted in HPI Constitutional: chills, fever, malaise Eyes: denies: eye pain, eye discharge, vision change ENT: denies: ear pain, throat pain, hearing loss, congestion Respiratory: cough, shortness of breath. denies: wheezing Cardiovascular: chest pain (Left-sided chest pain). denies: palpitations Endocrine: no symptoms reported Gastrointestinal: abdominal pain (Epigastric pain), nausea, vomiting. denies: diarrhea Genitourinary: denies: urgency, dysuria, discharge Musculoskeletal: arthralgia, myalgia. denies: back pain, joint swelling Skin: denies: rash, lesions Neurological: denies: headache, weakness, paresthesias Psychiatric: denies: anxiety, depression Hematological/Lymphatic: denies: easy bleeding, easy bruising ED Past Medical Hx - Past Medical History Hx Hypertension: Yes Hx GERD: Yes Additional medical history: Thrombocytosis, obstructive sleep apnea, vitamin D deficiency, GERD - Surgical History Past Surgical History?: Yes Additional Surgical History: HERNIA. left knee - Social History Smoking Status: Never Smoker Substance Use Type: None (Denies illicit drug use), Alcohol (Occasional) - Medications Home Medications: Home Medications Medication Instructions Recorded Confirmed Last Taken Type Hyoscyamine Subl [Levsin Sl 0.125 0.125 mg SL Q6HR PRN #7 tab 09/20/20 Unknown Rx TAB] Ondansetron [Zofran Odt] 4 mg PO Q8HR PRN #10 tab.rapdis 09/20/20 Unknown Rx Butalb/Acetamin/Caff 50-325-40 2 tab PO Q8HR PRN #14 tablet 12/09/20 Unknown Rx [Fioricet 50-325-40] Famotidine [Pepcid] 20 mg PO BID #20 tablet 12/09/20 Unknown Rx Famotidine [Pepcid] 20 mg PO Q12H #60 tablet 05/23/21 Unknown Rx Ibuprofen [Motrin] 800 mg PO Q8HR PRN #30 tablet 05/23/21 Unknown Rx Ondansetron [Zofran Odt] 4 mg PO Q6HR PRN #20 tab.rapdis 05/23/21 Unknown Rx ED Physical Exam - General Limitations: No Limitations General appearance: alert, in no apparent distress, obese - Head Head exam: Present: atraumatic, normocephalic - Eye Eye exam: Present: normal appearance, PERRL, EOMI Pupils: Present: normal accommodation - ENT ENT exam: Present: normal exam, normal orophraynx, mucous membranes moist, TM's normal bilaterally, normal external ear exam - Neck Neck exam: Present: normal inspection, full ROM - Respiratory Respiratory exam: Present: normal lung sounds bilaterally, chest wall tenderness (Palpable reproducible left-sided chest wall tenderness). Absent: respiratory distress, wheezes, rales, stridor - Cardiovascular Cardiovascular Exam: Present: regular rate, normal rhythm, normal heart sounds. Absent: systolic murmur, diastolic murmur, rubs, gallop - GI/Abdominal GI/Abdominal exam: Present: soft, normal bowel sounds. Absent: tenderness, guarding, rebound, hyperactive bowel sounds, hypoactive bowel sounds, organomegaly - Extremities Exam Extremities exam: Present: normal inspection, full ROM, normal capillary refill - Back Exam Back exam: Present: normal inspection, full ROM. Absent: tenderness, CVA tenderness (R), CVA tenderness (L), muscle spasm, paraspinal tenderness, vertebral tenderness - Neurological Exam Neurological exam: Present: alert, oriented X3, CN II-XII intact, normal gait, reflexes normal - Psychiatric Psychiatric exam: Present: normal affect, normal mood - Skin Skin exam: Present: warm, dry, intact, normal color. Absent: rash ED Course Vital Signs 05/22/21 22:08 Temperature 100.0 F H Pulse Rate 89 Respiratory 18 Rate Blood Pressure 149/90 [Left] O2 Sat by Pulse 94 Oximetry DUANE score - Duane Score Age > 65: (0) No Aspirin use within the Past 7 Days: (0) No 3 or more CAD Risk Factors: (0) No 2 or more Angina events in past 24 hrs: (0) No Known CAD with more than 50% Stenosis: (0) No Elevated Cardiac Markers: (0) No ST Deviation Greater than 0.5mm: (0) No DUANE Score: 0 ED Medical Decision Making - Lab Data Result diagrams: 05/22/21 22:41 05/22/21 22:41 - EKG Data EKG shows normal: sinus rhythm Rate: normal - EKG Data Interpretation: normal EKG 05/23/21 02:01 EKG shows normal sinus rhythm with a ventricular rate of [address] or T wave abnormalities. - Radiology Data Radiology results: report reviewed, image reviewed [address] [address] XRay Report Signed Patient: INÉS SUAREZ MR#: [id number] : 1990 Acct:[id number] Age/Sex: 30 / F ADM Date: 05/22/21 Loc: ED Attending Dr: Ordering Physician: NEHA GAUTAM Date of Service: 05/22/21 Procedure(s): XR chest routine 2V Accession Number(s): [id number] cc: NEHA GAUTAM Fluoro Time In Minutes: CHEST PA AND LATERAL VIEWS INDICATION: Chest Pain. COMPARISON: 04/25/2021 FINDINGS: Support devices: None. Heart: Within normal limits. Lungs/Pleura: No acute pulmonary or pleural findings. IMPRESSION: 1. No acute findings. Signer Name: Johnny Guzman MD Signed: 05/22/2021 10:52 PM Workstation Name: [id number] Transcribed By: ELENI Dictated By: Johnny Guzman MD Electronically Authenticated By: Johnny Guzman MD Signed Date/Time: 05/22/212251 DD/ 50 TD/TT: Print - Medical Decision Making This is a 30-year-old -Mongolian female with a history of morbid obesity, hypertension, GERD, vitamin D deficiency, and obstructive sleep apnea who presents to the ED with complaint of acute onset persistent epigastric pain, intermittent fever and chills and nausea and vomiting for the last 2 days. Patient also states that she has been having persistent dry cough with shortness of breath and developed acute onset left-sided chest pain at rest 3 hours prior to arrival in the ED. Patient states that no one else at home is had similar symptoms. Patient also states that she had a negative COVID-19 diagnosis test 24 hours ago. In the ED, patient is alert and oriented x3 and is not in any distress. Patient is febrile in triage but oxygen saturation is 94% in room air. Patient was treated for pain in the ED and also treated for nausea and vomiting and was given antacids. Lab test results were reviewed and are all nonactionable including the initial troponin and repeat troponin levels. D- dimer level is unremarkable. Chest x-ray showed no acute cardiopulmonary abnormalities or pneumonitis. Patient was also treated for pain in the ED. Patient the history of physical exam findings, an the patient left-sided chest pain is musculoskeletal as it is reproducible on physical exam. Patient's heart score is 1, and patient is PERC negative per Wells criteria. On reevaluation, patient's pain is well controlled medication. Patient will discharge home on medications and advised to follow-up with her primary care physician in 3 to 5 days for reevaluation or return to the ED immediately if symptoms get worse. - Differential Diagnosis Pneumonia; costochondritis; ACS; PE; GERD; URI; gastroenteritis Critical care attestation.: If time is entered above; I have spent that time in minutes in the direct care of this critically ill patient, excluding procedure time. ED Disposition Clinical Impression: Nonspecific chest pain, Acute costochondritis, Viral gastroenteritis GERD (gastroesophageal reflux disease) Qualifiers: Esophagitis presence: esophagitis presence not specified Qualified Code(s): K21.9 - Gastro-esophageal reflux disease without esophagitis Disposition: 01 HOME / SELF CARE / HOMELESS Is pt being admited?: No Does the pt Need Aspirin: No Condition: Stable Instructions: Costochondritis, Cjxy-ry-Hjzo, Viral Gastroenteritis, Adult, Yuzq-wy-Jpxw, Chest Wall Pain, Qgip-lh-Ohif, Nonspecific Chest Pain, Adult, Jwcn-lo-Rvjw, Gastroesophageal Reflux Disease, Adult, Zwle-yy-Wcsl Additional Instructions: All lab test results were reviewed and are all nonactionable. Chest x-ray shows no acute cardiopulmonary abnormalities or pneumonitis. Your chest pain is not likely to be cardiac but musculoskeletal. Therefore take medications with food, drink plenty of fluids and follow-up with your primary care physician in 3 to 5 days for reevaluation. Return to the ED immediately if symptoms get worse. Prescriptions: Ibuprofen [Motrin] 800 mg PO Q8HR PRN #30 tablet PRN Reason: Pain , Severe (7-10) Famotidine [Pepcid] 20 mg PO Q12H #60 tablet Ondansetron [Zofran Odt] 4 mg PO Q6HR PRN #20 tab.rapdis PRN Reason: Nausea Referrals: VERNON HORTA MD [Primary Care Provider] - 3-5 Days Forms: Work/School Release Form(ED) Time of Disposition: 02:06 Print Language: [place]
[2021-05-23] MEDS ORDERED: KETOROLAC 30 MG/1 ML INJ IV ONE (02:29)
[2021-05-23 02:41] VITALS: BP 160/89
--- NOTE | 2021-05-23 08:41 | Electrocardiograph Report ---
[facility] Test Date: 2021-05-22 Test Time: 22:29:16 Pat Name: INÉS SUAREZ Department: Room: Gender: F Director [employer]: [id number] : 1990 Requested By: NEHA GAUTAM Order Number: [id number] Reading MD: Arun Ignacio Measurements Intervals [place] Rate: 72 P: 32 [place]: 154 QRS: 62 QRSD: 78 T: 21 QT: 382 QTc: 419 Interpretive Statements Sinus rhythm Compared to ECG 04/25/2021 15:42:12 No significant changes Electronically Signed On 05-23-2021 8:40:47 EDT by Arun Ignacio
== END 2021-05-23 02:50 | disposition home or self-care (01) ==
LOC: ED 22:02
DX: R07.9 Chest pain, unspecified (principal); M94.0 Chondrocostal junction syndrome [Tietze]; A08.4 Viral intestinal infection, unspecified; K21.9 Gastro-esophageal reflux disease without esophagitis; E66.01 Morbid (severe) obesity due to excess calories; I10 Essential (primary) hypertension; G47.33 Obstructive sleep apnea (adult) (pediatric); Z98.890 Other specified postprocedural states
CPT/HCPCS: 36415; 71046; 80053; 83690; 84484; 85025; 85379; 93005; 96374; 99284; J1885; J2270; J2405; Q0162